=== PATIENT | male | born 1950 | race Asian ===

== ENCOUNTER 2019-11-25 09:46 | Inpatient (IN) | payer OTHER, MEDICARE ==
[~2019-11-25] VITALS: Ht 167.6 cm; Wt 72.6 kg
[2019-11-25 09:46] VITALS: BP_SYST 193
--- NOTE | 2019-11-25 09:48 | NUR ---
BROUGHT BACK TO BED #4 VIA WHEELCHAIR, TRIAGED. REPORT GIVEN TO CONG
--- NOTE | 2019-11-25 09:58 | NUR ---
Patient to ER bed 04 to gown for evaluation. Side rails up.
--- NOTE | 2019-11-25 10:00 | NUR ---
Pt brought to ER c/o R hip and leg pain after falling one week ago. 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
--- NOTE | 2019-11-25 10:15 | NUR ---
ER at bedside examining patient.
[2019-11-25 10:30] LABS: BASOPHILS % (AUTO) 0.5 % (0.0-2.0); EOSINOPHILS # (AUTO) 0.1 K/uL (0.0-0.4); EOSINOPHILS % (AUTO) 1.1 % (0.0-4.0); HEMATOCRIT 44.2 % (36-54); HEMOGLOBIN 14.9 g/dL (14.0-18.0); LYMPHOCYTES # (AUTO) 1.4 K/uL (1.0-5.5); LYMPHOCYTES % (AUTO) 18.5 % (20.5-51.5); MEAN CORPUSCULAR HEMOGLOBIN 32 pg (27-31); MEAN CORPUSCULAR HGB CONC 34 % (32-36); MEAN CORPUSCULAR VOLUME 95 fL (79.0-98.0); MONOCYTES # (AUTO) 0.7 K/uL (0.0-1.0); MONOCYTES % (AUTO) 9.6 % (1.7-9.3); NEUTROPHILS # (AUTO) 5.3 K/uL (1.8-7.7); NEUTROPHILS % (AUTO) 70.3 % (40.0-70.0); PLATELET COUNT (AUTO) 201 K/uL (130-430); RED BLOOD CELL COUNT(AUTO) 4.67 MIL/uL (4.2-6.2); RED CELL DISTRIBUTION WIDTH 13.8 % (9.0-15.0); WHITE BLOOD COUNT (AUTO) 7.5 K/uL (4.8-10.8)
[2019-11-25 10:47] LABS: ANION GAP 4 (5-15); CALCIUM 8.8 mg/dL (8.4-11.0); CHLORIDE 102 mmol/L (98-107); CREATININE 1.08 mg/dL (0.55-1.30); GLUCOSE 145 mg/dL (70-99); POTASSIUM 4.7 mmol/L (3.5-5.1); SODIUM SERUM 136 mmol/L (136-145); UREA NITROGEN, BLOOD 29 mg/dL (8-21)
[2019-11-25 10:53] LABS: ALANINE AMINOTRANSFERASE 23 U/L (12-78); ASPARTATE AMINOTRANSFERASE 12 U/L (10-37); PROTHROMBIN TIME 9.9 SECS (9.5-12.5); TOTAL BILIRUBIN 0.9 mg/dL (0.0-1.0)
--- NOTE | 2019-11-25 11:45 | NUR ---
Note zak in EDM - 11/25/19 at 1148 by SDEDDW Pt brought to ER c/o R hip and leg pain after falling one week ago. 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
[2019-11-25] MEDS ORDERED: MORPHINE SULFATE 10 MG/ML VIAL IM ONE (12:15)
[2019-11-25] MEDS ORDERED: ONDANSETRON 4 MG ODT TAB PO ONE (12:15)
--- NOTE | 2019-11-25 12:20 | NUR ---
22 gauge angiocath placed to L FA. Use of asceptic technique. Opsite placed over site. Blood return noted. Blood for lab drawn from site. Flushed with 10 cc of normal saline. No evidence of infiltration noted. Patient tolerated well.
[2019-11-25] MEDS ORDERED: SIMV20TA2 PO ×2 (13:05)
[2019-11-25] MEDS ORDERED: TACR0.5C PO (13:05)
[2019-11-25] MEDS ORDERED: LOSA25TA3 PO (13:05)
[2019-11-25] MEDS ORDERED: LORA-259 PO (13:05)
[2019-11-25] MEDS ORDERED: INSU100V9 SQ ×2 (13:05)
[2019-11-25] MEDS ORDERED: MYCO500T PO (13:05)
[2019-11-25] MEDS ORDERED: OMEP20CA11 PO (13:05)
[2019-11-25] MEDS ORDERED: ISOS30TA6 PO (13:05)
[2019-11-25] MEDS ORDERED: BUPR1PAT2 TP (13:05)
[2019-11-25] MEDS ORDERED: PRED5TAB PO (13:05)
[2019-11-25] MEDS ORDERED: ASPI-1153 PO (13:05)
[2019-11-25] MEDS ORDERED: INSU100V SQ (13:05)
[2019-11-25] MEDS ORDERED: NITSL SL (13:05)
[2019-11-25] MEDS ORDERED: NITR1PAT76 (13:05)
[2019-11-25] MEDS ORDERED: mycophenolate (13:05)
[2019-11-25] MEDS ORDERED: BLOO-1091 IH (13:05)
[2019-11-25] MEDS ORDERED: ATEN-41 PO (13:05)
[2019-11-25] MEDS ORDERED: CLOP75TA32 PO (13:05)
--- NOTE | 2019-11-25 14:09 | NUR ---
called for a Med Surg bed.
--- NOTE | 2019-11-25 14:35 | NUR ---
currently waitng to transfer to the pt to Med Surg. No nurse available.
--- NOTE | 2019-11-25 14:44 | NUR ---
Patient will be admitted to care of Dr. Shearer. Admitted to Med Surg unit. Will go to room 125-a. Belongings list completed. Complete and up to date summary report printed. SBAR report to be given at bedside with opportunity for questions. Report called to Angelia GRAMAJO.
--- NOTE | 2019-11-25 14:47 | NUR ---
CONSULTATION PAGED/CALLED Reason for Consultation: RIGHT HIP FRACTURE Person Who was Notified: DEREK Consulting Physician: Dr. Canas/Dr. CEVALLOS SPORTS MEDICINE COORDINATOR Technology Administrator Specialty: ORTHOPEDIC Ordering Physician: DR. CECILIA RIGGINS
--- NOTE | 2019-11-25 14:49 | NUR ---
ADMISSION NOTE Received patient from ER via ronaldo, received report from RANDEE GRAMAJO. Patient admitted with diagnosis of right hip fracture. Patient oriented to hospital routine, call light, toileting and safety-patient verbalized understanding.
[2019-11-25] MEDS ORDERED: HYDROmorphone 1 MG INJ. 1 MG/ML AMPUL IVP PRN (15:15)
[2019-11-25] MEDS: HYDROmorphone 2 MG/ML VIAL IVP PRN ×2 (15:33→22:37)
--- NOTE | 2019-11-25 15:33 | NUR ---
PAIN: PT MEDICATED WITH DILAUDID 2MG IVP FOR PAIN 8/10 VIA NUMERIC SCALE, TOLERATED WELL, WILL CONT' TO MONITOR AND ASSESS.
[2019-11-25 15:48] VITALS: BP_SYST 176
[2019-11-25 16:00] VITALS: BP_SYST 168
[2019-11-25 16:29] VITALS: BP_SYST 168
[2019-11-25] MEDS ORDERED: TACR1CAP PO (18:23)
[2019-11-25] MEDS ORDERED: NON-FORMULARY MEDICATION (Buprenorphine (Butrans) 1 PATCH) TP SCH (18:45)
[2019-11-25] MEDS ORDERED: LORazepam 2 MG/ML VIAL IVP PRN (18:45)
[2019-11-25] MEDS ORDERED: NITROGLYCERIN 0.4 MG TAB.SUBL SL SCH (18:45)
[2019-11-25] MEDS ORDERED: ACETAMINOPHEN 325 MG TABLET PO PRN (18:45)
[2019-11-25] MEDS ORDERED: ONDANSETRON HCL 4 MG/2 ML VIAL IVP PRN (18:45)
[2019-11-25 20:00] VITALS: BP_SYST 145; BP_SYST 168
[2019-11-25] MEDS ORDERED: OMEPRAZOLE Non-Formulary 20 MG CAPSULE.DR PO SCH (21:00)
[2019-11-25] MEDS: MYCOPHENOLATE MOFETIL 250 MG CAPSULE PO SCH (21:00)
--- NOTE | 2019-11-25 21:00 | NUR ---
PT RECIEVED AWAKE ALERT AND ORIENTED. VITAL SIGN STABLE. PT REQUESTED FOR A CHAIR SO HE CAN GO TO THE BATHROOM . PT CAN NO UNDERSTAND WHEN HE WAS TOLD TO WHAT FOR PHYSICAL THERAPY TO GET HIM UP THE FIRST TIME . WILL CONTINUE TO ENCORAGE PT TO STAY IN BED .
[2019-11-25] MEDS ORDERED: NORMAL SALINE 5 ML DISP.SYRIN IVF SCH (22:00)
[2019-11-25] MEDS: INSULIN REGULAR, HUMAN 100 UNITS/ML, 10 ML VIAL (humuLIN R) SUBCUT PRN (22:02)
[2019-11-25] MEDS: INSULIN GLARGINE 100 UNITS/ML 10 ML VIAL SQ SCH (22:03)
[2019-11-25] MEDS: ISOSORBIDE MONONITRATE 30 MG TAB.ER.24H PO SCH (22:04)
[2019-11-25] MEDS: NORMAL SALINE 5 ML DISP.SYRIN IVF SCH (22:38)
--- NOTE | 2019-11-26 | NUR ---
PT MEDICATED WITH DILUADID 2MG BE ANOTHER NURSE PT VEBALIZED PAIN RELIEVED . PT GIVEN LANTUS AND REGULARHUMILLIN . WILL MONITOR BLOOD SUGAR IN AM .
--- NOTE | 2019-11-26 04:43 | NUR ---
PT SLEPT WELL DURING THE NIGHT . PT REFUSED BLOO DRAW FOR LAB . RESCHEDULED BLOOD DRAW FOR MORNING .
[2019-11-26 06:15] LABS: BASOPHILS % (AUTO) 0.7 % (0.0-2.0); EOSINOPHILS # (AUTO) 0.1 K/uL (0.0-0.4); HEMATOCRIT 39.8 % (36-54); HEMOGLOBIN 13.6 g/dL (14.0-18.0); LYMPHOCYTES # (AUTO) 1.3 K/uL (1.0-5.5); LYMPHOCYTES % (AUTO) 19.5 % (20.5-51.5); MEAN CORPUSCULAR HEMOGLOBIN 32 pg (27-31); MEAN CORPUSCULAR HGB CONC 34 % (32-36); MEAN CORPUSCULAR VOLUME 95 fL (79.0-98.0); MONOCYTES # (AUTO) 0.6 K/uL (0.0-1.0); MONOCYTES % (AUTO) 8.5 % (1.7-9.3); NEUTROPHILS # (AUTO) 4.6 K/uL (1.8-7.7); NEUTROPHILS % (AUTO) 70.3 % (40.0-70.0); PLATELET COUNT (AUTO) 182 K/uL (130-430); RED BLOOD CELL COUNT(AUTO) 4.21 MIL/uL (4.2-6.2); RED CELL DISTRIBUTION WIDTH 13.7 % (9.0-15.0); WHITE BLOOD COUNT (AUTO) 6.6 K/uL (4.8-10.8)
[2019-11-26 06:27] LABS: ANION GAP 5 (5-15); CALCIUM 8.1 mg/dL (8.4-11.0); CHLORIDE 98 mmol/L (98-107); CREATININE 1.28 mg/dL (0.55-1.30); GLUCOSE 168 mg/dL (70-99); POTASSIUM 4.7 mmol/L (3.5-5.1); SODIUM SERUM 132 mmol/L (136-145); UREA NITROGEN, BLOOD 34 mg/dL (8-21)
[2019-11-26] MEDS: NORMAL SALINE 5 ML DISP.SYRIN IVF SCH (07:19)
--- NOTE | 2019-11-26 08:00 | NUR ---
ASSUMPTION OF CARE: RECEIVED PT A/A/OX4, VSS, DX:IMPAIRED PHYSICAL MOBILITY, R/T RIGHT HIP FX, PT STATES HIS LEVEL OF PAIN IS 3/10 VIA NUMERIC SCALE, TOLERABLE AT THIS TIME, AFEBRILE, NO DISTRESS NOTED, IV SITE INTACT, PATENT, NO REDNESS OR SWELLING, BREATH SOUNDS ARE CLEAR, BREATHING UNLABORED, ORIENTED TO UNIT, CALL LIGHT PLACED WITHIN REACH, WILL CONT' TO MONITOR AND ASSESS.
[2019-11-26] MEDS: CLOPIDOGREL BISULFATE 75 MG TABLET PO SCH (08:22)
[2019-11-26] MEDS: ISOSORBIDE MONONITRATE 30 MG TAB.ER.24H PO SCH ×2 (08:22→20:50)
[2019-11-26] MEDS: PANTOPRAZOLE SODIUM 40 MG TAB PO SCH (08:23)
[2019-11-26] MEDS: PREDNISONE 5 MG TABLET PO SCH (08:24)
[2019-11-26] MEDS: LOSARTAN POTASSIUM 25 MG TABLET PO SCH (08:24)
[2019-11-26] MEDS: ATENOLOL 25 MG TABLET(TENORMIN) PO SCH (08:24)
[2019-11-26] MEDS: ASPIRIN 81 MG TABLET(ECOTRIN) PO SCH (08:24)
[2019-11-26] MEDS: MYCOPHENOLATE MOFETIL 250 MG CAPSULE PO SCH ×3 (08:25→22:45)
[2019-11-26] MEDS: TACROLIMUS ANHYDROUS 0.5 MG CAPSULE (PROGRAF) PO SCH (08:25)
--- NOTE | 2019-11-26 09:00 | NUR ---
AUTOMATIC LATHE OPERATOR: MORNING MEDS GIVEN, PER ORDERED BY Michell, TOLERATED WELL, WILL CONT' TO MONITOR AND ASSESS.
--- NOTE | 2019-11-26 11:30 | NUR ---
GLUCOSE MONITORING: BLOOD SUGAR LEVEL= 138, NO COVERAGE REQUIRED, LUNCH MEAL AT BEDSIDE, PT IS A/A/OX4, NEEDS MET, WILL CONT' WITH POC.
[2019-11-26] MEDS: HYDROmorphone 2 MG/ML VIAL IVP PRN ×5 (11:49→23:20)
[2019-11-26 12:32] VITALS: BP_SYST 144
--- NOTE | 2019-11-26 13:42 | NUR ---
CONSULTATION PAGED REASON FOR CONSULTATION:PAIN MANAGEMENT WAS CONSULT CALLED?Y PERSON WHO WAS NOTIFIED:JOCELIN CONSULTING PHYSICIAN:JOSE ENRIQUE TSE HISTORY CARD CLERK SPECIALTY:PAIN SUPERVISOR ORE DRESSING PHONE NUMBER:[phone] REQUESTING PHYSICIAN:GILSON PARSONS
[2019-11-26 16:34] VITALS: BP_SYST 145
--- NOTE | 2019-11-26 17:00 | NUR ---
GLUCOSE MONITORING: BLOOD SUGAR LEVEL= 349, 8 UNITS COVERAGE GIVEN SQ, TOLERATED WELL, PT REMAINS STABLE, NEEDS MET, WILL CONT' TO MONITOR AND ASSESS..
[2019-11-26] MEDS: HYDROmorphone 2 MG TAB PO SCH ×2 (17:14→20:50)
[2019-11-26] MEDS: TACROLIMUS ANHYDROUS 1 MG CAPSULE (PROGRAF) PO SCH (17:15)
[2019-11-26] MEDS: INSULIN REGULAR, HUMAN 100 UNITS/ML, 10 ML VIAL (humuLIN R) SUBCUT PRN ×2 (17:19→21:05)
[2019-11-26] MEDS: D5/0.45 NS 1,000 ML IV SCH ×2 (17:57→23:30)
[2019-11-26] MEDS: SIMVASTATIN 20 MG TABLET PO SCH (17:59)
[2019-11-26 20:00] VITALS: BP_SYST 150
--- NOTE | 2019-11-26 21:00 | NUR ---
PT RECIVED AWAKE ALERT AND ORIENTED X3 . PT ON IV D51/2NS 100CC/HR . PT VITAL SIGN STAABLE . VITAL SITE STABLE SKIN INTACT , PT VITAL SIGN STABLE . WILL CONTINUE TO BE MONITORED VITAL SIGN. PT GIVEN HS SNACK , PT.S BLOOD SUGAR IS 224 PT COVERED WITH 4 UNITS OF REGULAR INSULLIN AND 20 U ,
[2019-11-26] MEDS: INSULIN GLARGINE 100 UNITS/ML 10 ML VIAL SQ SCH (21:06)
--- NOTE | 2019-11-27 | NUR ---
PT HAS NO C/O PAIN . VITAL SIGN STABLE . PT WILL MONITOR PT .
[2019-11-27 00:24] VITALS: BP_SYST 121
[2019-11-27] MEDS: LORazepam 1 MG TABLET PO SCH ×2 (02:19→22:45)
--- NOTE | 2019-11-27 05:07 | NUR ---
PT WAS MEDICATED WILL ATIVAN P.O TO HELP PT GO TO SLEEP.WILL CONTINUE TO MONITOR .
[2019-11-27 06:20] LABS: ANION GAP 7 (5-15); CALCIUM 7.8 mg/dL (8.4-11.0); CHLORIDE 101 mmol/L (98-107); CREATININE 1.07 mg/dL (0.55-1.30); GLUCOSE 228 mg/dL (70-99); SODIUM SERUM 134 mmol/L (136-145); UREA NITROGEN, BLOOD 28 mg/dL (8-21)
[2019-11-27 07:05] LABS: BASOPHILS % (AUTO) 0.6 % (0.0-2.0); EOSINOPHILS % (AUTO) 0.8 % (0.0-4.0); HEMATOCRIT 37.3 % (36-54); HEMOGLOBIN 12.7 g/dL (14.0-18.0); LYMPHOCYTES % (AUTO) 16.8 % (20.5-51.5); MEAN CORPUSCULAR HEMOGLOBIN 32 pg (27-31); MEAN CORPUSCULAR HGB CONC 34 % (32-36); MEAN CORPUSCULAR VOLUME 94 fL (79.0-98.0); MONOCYTES # (AUTO) 0.6 K/uL (0.0-1.0); MONOCYTES % (AUTO) 10.1 % (1.7-9.3); NEUTROPHILS # (AUTO) 4.1 K/uL (1.8-7.7); NEUTROPHILS % (AUTO) 71.7 % (40.0-70.0); PLATELET COUNT (AUTO) 168 K/uL (130-430); RED BLOOD CELL COUNT(AUTO) 3.95 MIL/uL (4.2-6.2); RED CELL DISTRIBUTION WIDTH 13.8 % (9.0-15.0); WHITE BLOOD COUNT (AUTO) 5.8 K/uL (4.8-10.8)
[2019-11-27] MEDS: INSULIN REGULAR, HUMAN 100 UNITS/ML, 10 ML VIAL (humuLIN R) SUBCUT PRN ×3 (07:23→22:51)
[2019-11-27 08:30] VITALS: BP_SYST 168
--- NOTE | 2019-11-27 09:00 | NUR ---
WASTE COLLECTION DRIVER: MORNING MEDS GIVEN, PER ORDERED BY Michell, TOLERATED WELL, WILL CONT' TO MONITOR AND ASSESS.
[2019-11-27] MEDS: PANTOPRAZOLE SODIUM 40 MG TAB PO SCH (09:49)
[2019-11-27] MEDS: CLOPIDOGREL BISULFATE 75 MG TABLET PO SCH (09:49)
[2019-11-27] MEDS: ISOSORBIDE MONONITRATE 30 MG TAB.ER.24H PO SCH ×2 (09:49→22:39)
[2019-11-27] MEDS: PREDNISONE 5 MG TABLET PO SCH (09:49)
[2019-11-27] MEDS: ASPIRIN 81 MG TABLET(ECOTRIN) PO SCH (09:50)
[2019-11-27] MEDS: LOSARTAN POTASSIUM 25 MG TABLET PO SCH (09:50)
[2019-11-27] MEDS: ATENOLOL 25 MG TABLET(TENORMIN) PO SCH (09:50)
[2019-11-27] MEDS: TACROLIMUS ANHYDROUS 0.5 MG CAPSULE (PROGRAF) PO SCH (09:51)
[2019-11-27] MEDS: D5/0.45 NS 1,000 ML IV SCH ×2 (09:53→19:30)
[2019-11-27] MEDS: MYCOPHENOLATE MOFETIL 250 MG CAPSULE PO SCH (10:39)
--- NOTE | 2019-11-27 10:56 | NUR ---
Nutrition Update Jareth Scale 17 noted. Pt admitted for R hip fracture. Diet: cardiac, CCHO standard carb-60 gm BMI: 25.8 kg/m2 RD to follow per nutrition care standards.
--- NOTE | 2019-11-27 11:30 | NUR ---
GLUCOSE MONITORING: BLOOD SUGAR LEVEL= 141, NO COVERAGE REQUIRED, LUNCH MEAL AT BEDSIDE, PT IS A/A/OX4 WITH AT BEDSIDE, WILL CONT' WITH POC.
[2019-11-27 12:30] VITALS: BP_SYST 157
[2019-11-27 16:35] VITALS: BP_SYST 150
[2019-11-27] MEDS: SIMVASTATIN 20 MG TABLET PO SCH (17:21)
[2019-11-27] MEDS: TACROLIMUS ANHYDROUS 1 MG CAPSULE (PROGRAF) PO SCH (17:22)
[2019-11-27] MEDS: HYDROmorphone 2 MG TAB PO SCH (19:30)
[2019-11-27 20:00] VITALS: BP_SYST 156
--- NOTE | 2019-11-27 22:00 | NUR ---
pt recieved awake alert and oriented . pt refued his iv , pt have heplock .pt,s vital signstable . bp 156/89 .blood sugar 237 covered with 4 unit of regular , humallin . pt medicated .
[2019-11-27] MEDS: INSULIN GLARGINE 100 UNITS/ML 10 ML VIAL SQ SCH (22:53)
--- NOTE | 2019-11-27 23:00 | NUR ---
pt induced to anothernurse to continue with care.
[2019-11-28 00:18] VITALS: BP_SYST 143
--- NOTE | 2019-11-28 01:30 | NUR ---
INITIAL NOTES Patient is resting, no signs of distress observed. IVF refused, patient education provided, but patiet still refuses after understanding. dressings c/d/i. CAll light wtihin reach, bed alarm on, and bed at lowest position. Will continue to monitor.
[2019-11-28] MEDS: D5/0.45 NS 1,000 ML IV SCH ×2 (06:07→18:26)
[2019-11-28 06:11] LABS: ALANINE AMINOTRANSFERASE 22 U/L (12-78); ALBUMIN 3.8 g/dL (3.4-4.8); ANION GAP 6 (5-15); ASPARTATE AMINOTRANSFERASE 9 U/L (10-37); BASOPHILS % (AUTO) 0.3 % (0.0-2.0); CALCIUM 8.8 mg/dL (8.4-11.0); CHLORIDE 98 mmol/L (98-107); CREATININE 0.98 mg/dL (0.55-1.30); EOSINOPHILS # (AUTO) 0.1 K/uL (0.0-0.4); EOSINOPHILS % (AUTO) 0.7 % (0.0-4.0); GLUCOSE 85 mg/dL (70-99); HEMATOCRIT 42.8 % (36-54); HEMOGLOBIN 14.5 g/dL (14.0-18.0); LYMPHOCYTES # (AUTO) 1.4 K/uL (1.0-5.5); LYMPHOCYTES % (AUTO) 19.1 % (20.5-51.5); MEAN CORPUSCULAR HEMOGLOBIN 32 pg (27-31); MEAN CORPUSCULAR HGB CONC 34 % (32-36); MEAN CORPUSCULAR VOLUME 94 fL (79.0-98.0); MONOCYTES # (AUTO) 0.6 K/uL (0.0-1.0); MONOCYTES % (AUTO) 8.9 % (1.7-9.3); NEUTROPHILS # (AUTO) 5.1 K/uL (1.8-7.7); PLATELET COUNT (AUTO) 205 K/uL (130-430); POTASSIUM 4.1 mmol/L (3.5-5.1); RED BLOOD CELL COUNT(AUTO) 4.56 MIL/uL (4.2-6.2); RED CELL DISTRIBUTION WIDTH 13.7 % (9.0-15.0); SODIUM SERUM 134 mmol/L (136-145); UREA NITROGEN, BLOOD 18 mg/dL (8-21); WHITE BLOOD COUNT (AUTO) 7.2 K/uL (4.8-10.8)
--- NOTE | 2019-11-28 07:53 | NUR ---
CLOSING NOTES Patient is resting, no signs of distress observed. IVF now infusing, dressings c/d/i. Blood Glucose of 91, no insulin coverage needed, susy penn at bedside. CAll light within reach, bed alarm on, and bed at lowest position. All needs met throughout shift. will endorse care to oncoming shift
[2019-11-28] MEDS: ATENOLOL 25 MG TABLET(TENORMIN) PO SCH (08:48)
[2019-11-28] MEDS: ASPIRIN 81 MG TABLET(ECOTRIN) PO SCH (08:49)
[2019-11-28] MEDS: ISOSORBIDE MONONITRATE 30 MG TAB.ER.24H PO SCH ×2 (08:49→21:59)
[2019-11-28] MEDS: PANTOPRAZOLE SODIUM 40 MG TAB PO SCH (08:49)
[2019-11-28] MEDS: PREDNISONE 5 MG TABLET PO SCH (08:49)
[2019-11-28] MEDS: CLOPIDOGREL BISULFATE 75 MG TABLET PO SCH (08:49)
[2019-11-28] MEDS: LOSARTAN POTASSIUM 25 MG TABLET PO SCH (08:50)
[2019-11-28] MEDS: MYCOPHENOLATE MOFETIL 250 MG CAPSULE PO SCH ×2 (08:50→21:59)
[2019-11-28] MEDS: TACROLIMUS ANHYDROUS 0.5 MG CAPSULE (PROGRAF) PO SCH (08:51)
--- NOTE | 2019-11-28 09:00 | NUR ---
ATOMIC PHYSICS PROFESSOR: MORNING MEDS GIVEN, PER ORDERED BY Michell, TOLERATED WELL, WILL CONT' TO MONITOR AND ASSESS.
--- NOTE | 2019-11-28 12:00 | NUR ---
GLUCOSE MONITORING: PT REFUSED ACCU CHECK AT THIS TIME, STATES HE HAS JUST EATEN MINUTES AGO, WILL RESUME ON NEXT SCHEDULED TEST.
[2019-11-28 12:51] VITALS: BP_SYST 151
--- NOTE | 2019-11-28 15:00 | NUR ---
NURSES NOTES: PT SITTING UP OOB, INTO CHAIR WITH FAMILY MEMBERS AT BEDSIDE, NO C/O PAIN, NO S/S OF DISTRESS, WILL CONT' TO MONITOR AND ASSESS.
[2019-11-28] MEDS: HYDROmorphone 2 MG TAB PO SCH ×2 (16:19→19:30)
[2019-11-28 16:47] VITALS: BP_SYST 143
--- NOTE | 2019-11-28 18:00 | NUR ---
GLUCOSE MONITORING: BLOOD SUGAR JQZVX=396, 4 UNITS REGULAR INSULIN COVERAGE GIVEN SQ, TOLERATED WELL, FAMILY AT BEDSIDE, CALL LIGHT PLACED WITHIN REACH, WILL CONT' TO MONITOR AND ASSESS.
--- NOTE | 2019-11-28 18:00 | NUR ---
GLUCOSE MONITORING: BLOOD SUGAR LEVEL= 244, COVERED WITH 4 UNITS REGULAR INSULIN, TOLERATED WELL, CALL LIGHT WITHIN REACH, WILL CONT' WITH POC.
[2019-11-28] MEDS: TACROLIMUS ANHYDROUS 1 MG CAPSULE (PROGRAF) PO SCH (18:25)
[2019-11-28] MEDS: SIMVASTATIN 20 MG TABLET PO SCH (18:25)
[2019-11-28] MEDS: INSULIN REGULAR, HUMAN 100 UNITS/ML, 10 ML VIAL (humuLIN R) SUBCUT PRN ×2 (18:32→22:04)
[2019-11-28 21:00] VITALS: BP_SYST 144
[2019-11-28] MEDS: LORazepam 1 MG TABLET PO SCH (22:00)
[2019-11-28] MEDS: INSULIN GLARGINE 100 UNITS/ML 10 ML VIAL SQ SCH (22:03)
--- NOTE | 2019-11-28 22:45 | NUR ---
ASSIST PATIENT OUT OF BED FOR BSC , BKA noted Right side FALL MEASURES EFFECTIVE .
[2019-11-28] MEDS: HYDROmorphone 2 MG/ML VIAL IVP PRN (23:15)
--- NOTE | 2019-11-29 | NUR ---
DILAUDID 2 MG IVP ADMINISTER FOR GENERAL PAIN 06/08 comfort measures implemented & helpful .
[2019-11-29 00:27] VITALS: BP_SYST 144
--- NOTE | 2019-11-29 00:40 | NUR ---
LORAZEPAM 1 MG PO ADMINISTER FOR GENERAL AGITATION & HELPFUL .
[2019-11-29] MEDS: HYDROmorphone 2 MG TAB PO SCH ×3 (01:30→10:00)
--- NOTE | 2019-11-29 03:35 | NUR ---
HOURLY ROUNDING Patient Resting HOB elevated chest movement symmetrical call chirinos with patient .
--- NOTE | 2019-11-29 05:48 | NUR ---
Follow up consult called for Wagner Tello, re; pain management. s/w to [place].
[2019-11-29] MEDS: D5/0.45 NS 1,000 ML IV SCH ×2 (06:21→11:30)
[2019-11-29 06:34] LABS: BASOPHILS % (AUTO) 0.5 % (0.0-2.0); EOSINOPHILS # (AUTO) 0.1 K/uL (0.0-0.4); EOSINOPHILS % (AUTO) 1.2 % (0.0-4.0); HEMATOCRIT 39.7 % (36-54); HEMOGLOBIN 13.4 g/dL (14.0-18.0); LYMPHOCYTES # (AUTO) 1.2 K/uL (1.0-5.5); LYMPHOCYTES % (AUTO) 20.1 % (20.5-51.5); MEAN CORPUSCULAR HEMOGLOBIN 32 pg (27-31); MEAN CORPUSCULAR HGB CONC 34 % (32-36); MEAN CORPUSCULAR VOLUME 94 fL (79.0-98.0); MONOCYTES # (AUTO) 0.6 K/uL (0.0-1.0); MONOCYTES % (AUTO) 10.5 % (1.7-9.3); NEUTROPHILS # (AUTO) 4.1 K/uL (1.8-7.7); NEUTROPHILS % (AUTO) 67.7 % (40.0-70.0); PLATELET COUNT (AUTO) 204 K/uL (130-430); RED BLOOD CELL COUNT(AUTO) 4.22 MIL/uL (4.2-6.2); RED CELL DISTRIBUTION WIDTH 13.9 % (9.0-15.0)
[2019-11-29 06:36] LABS: ANION GAP 4 (5-15); CALCIUM 8.4 mg/dL (8.4-11.0); CHLORIDE 102 mmol/L (98-107); CREATININE 1.02 mg/dL (0.55-1.30); GLUCOSE 103 mg/dL (70-99); POTASSIUM 3.8 mmol/L (3.5-5.1); SODIUM SERUM 135 mmol/L (136-145); UREA NITROGEN, BLOOD 20 mg/dL (8-21)
[2019-11-29 08:15] VITALS: BP_SYST 164
[2019-11-29] MEDS: CLOPIDOGREL BISULFATE 75 MG TABLET PO SCH (09:44)
[2019-11-29] MEDS: TACROLIMUS ANHYDROUS 0.5 MG CAPSULE (PROGRAF) PO SCH (09:44)
[2019-11-29] MEDS: ISOSORBIDE MONONITRATE 30 MG TAB.ER.24H PO SCH (09:45)
[2019-11-29] MEDS: PREDNISONE 5 MG TABLET PO SCH (09:45)
[2019-11-29] MEDS: ASPIRIN 81 MG TABLET(ECOTRIN) PO SCH (09:45)
[2019-11-29] MEDS: LOSARTAN POTASSIUM 25 MG TABLET PO SCH (09:45)
[2019-11-29] MEDS: ATENOLOL 25 MG TABLET(TENORMIN) PO SCH (09:46)
[2019-11-29] MEDS: PANTOPRAZOLE SODIUM 40 MG TAB PO SCH (09:46)
[2019-11-29] MEDS: MYCOPHENOLATE MOFETIL 250 MG CAPSULE PO SCH (09:47)
--- NOTE | 2019-11-29 09:50 | NUR ---
Routine Patient sitting on side of bed with complaint of right hip pain. Scheduled medications given per order. Will medicate for pain. Patient stable at this time. Addendum: 11/29/19 at 1003 by Claudine Steele RN Patient medicated for 6/10 pain in right hip. Patient stable.
--- NOTE | 2019-11-29 10:36 | NUR ---
Patient ambulating with walker in hallway with PT.
--- NOTE | 2019-11-29 12:02 | NUR ---
DC PLANNING: CM SPOKE WITH ERIKA (LEAD CUSTOMER SERVICE REPRESENTATIVE @ [facility]) @ . PATIENT IS ACCEPTED AND ROOM NUMBER IS 1131-A. PHONE FOR REPORT P EXT. [phone]. TRANSPORTATION HAS BEEN SETUP WITH [facility] @ , SPOKE WITH MEENAKSHI (DISPATCH) AND METAL DIE FINISHER TIME IS AT 3:30PM. PATIENT'S NURSE MADE AWARE.
[2019-11-29] MEDS: INSULIN REGULAR, HUMAN 100 UNITS/ML, 10 ML VIAL (humuLIN R) SUBCUT PRN (12:11)
[2019-11-29 12:30] VITALS: BP_SYST 143
[2019-11-29 14:38] VITALS: BP_SYST 143
--- NOTE | 2019-11-29 14:45 | NUR ---
Called report Called report to Komal Leung RN at [facility], [phone]. [facility]
== END 2019-11-29 16:00 | DRG 536 ==
LOC: SED 09:46 → SMU 14:04
PROVIDERS: ADMIT Preventive Medicine Preventive Medicine/Occupational Environmental Medicine; ATTEND Preventive Medicine Preventive Medicine/Occupational Environmental Medicine
DX: S32.401A Unspecified fracture of right acetabulum, initial encounter for closed fracture (principal); E87.1 Hypo-osmolality and hyponatremia; Z94.0 Kidney transplant status; K40.90 Unilateral inguinal hernia, without obstruction or gangrene, not specified as recurrent; I10 Essential (primary) hypertension; E11.9 Type 2 diabetes mellitus without complications; G89.29 Other chronic pain; I25.10 Atherosclerotic heart disease of native coronary artery without angina pectoris; M51.36 Other intervertebral disc degeneration, lumbar region; M19.90 Unspecified osteoarthritis, unspecified site; W01.0XXA Fall on same level from slipping, tripping and stumbling without subsequent striking against object, initial encounter; Y93.89 Activity, other specified; Y92.89 Other specified places as the place of occurrence of the external cause; Z89.511 Acquired absence of right leg below knee; Y99.8 Other external cause status
CPT/HCPCS: 36415; 72192-TC; 80048; 80053; 82962; 85025; 85610-TC; 85730-TC; 96372; 97110-GP; 97116-GP; 97530-GP; 99285; J1170; J1815; J2270; J7507; J7512; J7517; Q0162